=== PATIENT | male | born 1990 | race African-American/Black ===

== ENCOUNTER 2017-04-07 10:11 | Emergency (ER) | payer BC ==
[~2017-04-07] VITALS: Ht 180.3 cm; Wt 144.2 kg
[~2017-04-07 10:11] MED LIST: ADVAIR 250/501 DISK IH; ALBUTEROL SULF8.5 GM IH; ALBUTEROL2.5 MG/0.5 IH; ASMANEX HFA13 G1 IH; ASMANEX HFA13 GM IH; DELTASONE20 M1 PO; DUONEB 2.5-0.5 M3 ML IH; FLONASE16 G1 BOTH NARES; FLOVENT 11120 INHALA IH; ONE DAILY GUM200 MCG PO; PEPCID20 MG PO; PREDNISONE10 MG PO; PREDNISONE20 MG PO; PREDNISONE50 MG PO; PROVENTIL,2.5 MG/0.5 AEROSOL; PROVENTIL,2.5 MG/3 M IH; VENTOLIN HFA18 GM IH; ZITHROMAX250 MG PO
[2017-04-07] MEDS ORDERED: PROVENTIL,2.5 MG/3 M IH (13:45)
[2017-04-07] MEDS ORDERED: PREDNISONE50 MG PO (13:45)
[2017-04-07] MEDS ORDERED: AERONEB GO NEB1 EACH MC (13:45)
[2017-04-07 14:19] VITALS: BP 138/70
== END 2017-04-07 14:52 | disposition home or self-care (01) ==
LOC: EME 10:11
DX: J45.901 Unspecified asthma with (acute) exacerbation (principal); M54.6 Pain in thoracic spine
CPT/HCPCS: 71010; 93005; 94640; 94640 76; J7512

== ENCOUNTER 2017-10-20 11:48 | Emergency (ER) | payer BC ==
[~2017-10-20] VITALS: Ht 180.3 cm; Wt 144.9 kg
[~2017-10-20 11:48] MED LIST changes: +AERONEB GO NEB1 EACH MC
[2017-10-20 13:30] LABS: HEMATOCRIT 44.2 % (38.0-50.0); HEMOGLOBIN 14.7 G/DL (12.5-16.6); MCH 31.1 PG (29.0-34.0); MCHC 33.3 G/DL (30.0-36.0); MCV 93.6 FL (86-99); PLATELET COUNT 168 K/uL (156-360); RBC DIS.WIDTH-CV 12.6 % (11.8-14.6); RBC DIS.WIDTH-SD 43.6 % (39-53); RED BLOOD COUNT 4.72 M/uL (4.00-5.50); WHITE BLOOD COUNT 6.8 K/uL (4.1-10.2)
[2017-10-20 13:43] LABS: ALBUMIN 3.9 g/dL (3.2-4.8); CHLORIDE 105 mEq/L (99-109); POTASSIUM 4.5 mEq/L (3.7-5.4); SODIUM 140 mEq/L (136-147)
[2017-10-20 13:45] LABS: GLUCOSE 110 mg/dL (70-99); TOTAL PROTEIN 6.8 g/dL (6.4-8.3)
[2017-10-20 13:47] LABS: TOTAL BILIRUBIN 0.3 mg/dL (0.0-1.0)
[2017-10-20 13:48] LABS: SERUM ETHYL ALCOHOL < 10 mg/dL
[2017-10-20 13:49] LABS: ALKALINE PHOSPHATASE 45 IU/L (3-129); CREATININE 0.9 mg/dL (0.6-1.3); GFR ESTIMATE (CALCULATED) > 59 mL/min/ (58.99-99999)
[2017-10-20 13:50] LABS: UREA NITROGEN (BUN) 14 mg/dL (9-23)
[2017-10-20 13:51] LABS: AST (GOT) 31 IU/L (2-34)
[2017-10-20 13:52] LABS: ALT (GPT) 51 IU/L (3-49)
[2017-10-20 14:56] VITALS: BP 152/98
[2017-10-20 15:06] LABS: APPEARANCE CLEAR ((CLEAR)); BILIRUBIN NEGATIVE; BLOOD NEGATIVE; COLOR YELLOW ((YELLOW)); GLUCOSE (STRIP) NEGATIVE; KETONES NEGATIVE; LEUKOCYTES NEGATIVE; NITRITE NEGATIVE; PROTEIN (STRIP) NEGATIVE; SPECIFIC GRAVITY 1.025 (1.000-1.030); UROBILINOGEN 0.2 MG/DL (0.2-1.0)
[2017-10-20 15:20] LABS: AMPHETAMINE NEGATIVE (500 ng/mL); BARBITURATES NEGATIVE (200 ng/mL); BENZODIAZEPINES NEGATIVE (150 ng/mL); BUPRENORPHINE NEGATIVE (10 ng/mL); COCAINE NEGATIVE (150 ng/mL); METHADONE NEGATIVE (200 ng/mL); METHAMPHETAMINE NEGATIVE (500 ng/mL); OPIATES (MORPHINE) NEGATIVE (100 ng/mL); OXYCODONE NEGATIVE (100 ng/mL); PHENCYCLIDINE NEGATIVE (25 ng/mL); PROPOXYPHENE NEGATIVE (300 ng/mL); THC CANNABINOIDS NEGATIVE (50 ng/mL); TRICYCLIC ANTIDEPRESSANTS NEGATIVE (300 ng/mL)
== END 2017-10-20 15:00 | disposition home or self-care (01) ==
LOC: EME 11:48
PROVIDERS: Emergency Medicine
DX: F41.9 Anxiety disorder, unspecified (principal); F43.23 Adjustment disorder with mixed anxiety and depressed mood; J45.909 Unspecified asthma, uncomplicated
CPT/HCPCS: 80053; 81003; 85027; 90839; 99281; 99284; G0480